=== PATIENT | male | born 1990 | race Caucasian/White ===

== ENCOUNTER 2017-01-23 01:35 | Emergency (ER) | payer OTHER ==
--- NOTE | 2017-01-23 01:49 | PDOC ---
History of Present Illness <Jennifer White - Last Filed: 01/23/17 03:44> - General History Source: Patient Exam Limitations: No Limitations - History of Present Illness Initial Comments: 01/23/17 04:11 The patient is a 26 year old male, with no significant past medical history, who presents to the emergency department with, right leg pain which has resolved. He reports the right leg pain to have lasted a few hours. He reports the right leg pain to have radiated from his knee to calf and to be ranked an 8. He reports that when he had the pain he could neither put weight on it nor walk. He reports to have driven for 8 hours today and came to the hospital to rule out DVT. He denies any recent fevers, chills, headache or dizziness. He denies any recent nausea, vomit, diarrhea or constipation. He denies any recent chest pain or shortness of breath. He denies any recent dysuria, frequency, urgency or hematuria. Allergies: NKA Past surgical history: None reported. Social History: Nonsmoker. Denies EtOH use and recreational drug use. <Brannon Gardner - Last Filed: 01/23/17 04:15> - General Stated Complaint: RIGHT PAIN Time Seen by Provider: 01/23/17 01:48 Past History <Jennifer White - Last Filed: 01/23/17 03:44> <Brannon Gardner - Last Filed: 01/23/17 04:15> - Past Medical History Allergies/Adverse Reactions: Allergies Allergy/AdvReac Type Severity Reaction Status Date / Time No Known Allergies Allergy Verified 01/23/17 02:26 Home Medications: Ambulatory Orders NK [No Known Home Medication] 01/23/17 Review of Systems - Review of Systems Able to Perform ROS?: Yes Comments:: 01/23/17 04:11 GENERAL/CONSTITUTIONAL: No fever or chills. No weakness. HEAD, EYES, EARS, NOSE AND THROAT: No change in vision. No ear pain or discharge. No sore throat. CARDIOVASCULAR: No chest pain or shortness of breath. RESPIRATORY: No cough, wheezing, or hemoptysis. GASTROINTESTINAL: No nausea, vomiting, diarrhea or constipation. GENITOURINARY: No dysuria, frequency, or change in urination. MUSCULOSKELETAL: +Right leg pain (resolved). No joint swelling. No neck or back pain. SKIN: No rash NEUROLOGIC: No headache, vertigo, loss of consciousness, or change in strength/ sensation. ENDOCRINE: No increased thirst. No abnormal weight change. HEMATOLOGIC/LYMPHATIC: No anemia, easy bleeding, or history of blood clots. ALLERGIC/IMMUNOLOGIC: No hives or skin allergy. All Other Systems: Reviewed and Negative <Brannon Gardner - Last Filed: 01/23/17 04:15> *Physical Exam - Vital Signs Last Vital Signs Temp Pulse Resp BP Pulse Ox 98.6 F 79 20 119/83 98 01/23/17 01:35 01/23/17 01:35 01/23/17 01:35 01/23/17 01:35 01/23/17 01:35 - Physical Exam Comments: 01/23/17 04:14 GENERAL: Awake, alert, and fully oriented, in no acute distress HEAD: No signs of trauma EYES: PERRLA, EOMI, sclera anicteric, conjunctiva clear ENT: Auricles normal inspection, hearing grossly normal, nares patent, oropharynx clear without exudates. Moist mucosa NECK: Normal ROM, supple, no lymphadenopathy, JVD, or masses LUNGS: Breath sounds equal, clear to auscultation bilaterally. No wheezes, and no crackles HEART: Regular rate and rhythm, normal S1 and S2, no murmurs, rubs or gallops ABDOMEN: Soft, nontender, normoactive bowel sounds. No guarding, no rebound. No masses EXTREMITIES: Normal range of motion, no edema. No clubbing or cyanosis. No cords, erythema, or tenderness NEUROLOGICAL: Cranial nerves II through XII grossly intact. Normal speech, normal gait SKIN: Warm, Dry, normal turgor, no rashes or lesions noted. <Brannon Gardner - Last Filed: 01/23/17 04:15> Medical Decision Making - Medical Decision Making 01/23/17 03:09 Patient Name: ORAL MORROW THIS IS A PRELIMINARY REPORT FROM [facility] DATE OF SERVICE: 2017-01-23 01:51:03 IMAGES: 21 EXAM: VENOUS DUPLEX UNILATERAL No evidence for DVT right lower extremity. THIS DOCUMENT HAS BEEN ELECTRONICALLY SIGNED <Jennifer White - Last Filed: 12/16/17 03:44> *DC/Admit/Observation/Transfer - Discharge Dispostion Admit: No <Jennifer White - Last Filed: 01/23/17 03:44> - Attestations Scribe Attestion: 01/23/17 04:13 Documentation prepared by Brannon Gardner, acting as medical affairs director for Jennifer White MD. <Brannon Gardner - Last Filed: 01/23/17 04:15> Diagnosis at time of Disposition: Cramp in lower leg - Discharge Dispostion Disposition: HOME Condition at time of disposition: Stable - Patient Instructions Printed Discharge Instructions: Calf Muscle Strain
[2017-01-23 02:27] VITALS: BP 119/83; PULSE 79; TEMP 98.6; BMI 23.6
== END 2017-01-23 03:56 | disposition home or self-care (01) ==
LOC: JER 01:35
DX: M79.661 Pain in right lower leg (principal); R25.2 Cramp and spasm
CPT/HCPCS: 93971-TC; 99282-25